=== PATIENT | female | born 1965 | race American Indian/Alaskan Native ===

== ENCOUNTER 2019-04-14 16:26 | Emergency (ER) | payer MEDICARE, MEDICAID ==
[~2019-04-14] VITALS: Ht 157.5 cm; Wt 75.0 kg
[~2019-04-14 16:26] MED LIST: DIAZ-351 PO
[2019-04-14 16:42] VITALS: BP 180/121
--- NOTE | 2019-04-14 16:53 | NUR ---
pt to xray via wheelchair with technical developer
--- NOTE | 2019-04-14 16:59 | NUR ---
pt. back from x-ray.
[2019-04-14] MEDS ORDERED: ketorolac trometh inj. 60 MG/2 ML VIAL IM ONE (17:30)
[2019-04-14] MEDS ORDERED: acetaminophen 325mg tablet PO ONE (17:30)
== END 2019-04-14 17:53 | disposition home or self-care (01) ==
LOC: ER 16:27
DX: S93.492A Sprain of other ligament of left ankle, initial encounter (principal); K21.9 Gastro-esophageal reflux disease without esophagitis; G89.29 Other chronic pain; Z56.0 Unemployment, unspecified; Z98.890 Other specified postprocedural states; Z88.8 Allergy status to other drugs, medicaments and biological substances; X50.1XXA Overexertion from prolonged static or awkward postures, initial encounter; Y93.89 Activity, other specified; Y92.89 Other specified places as the place of occurrence of the external cause; Y99.9 Unspecified external cause status
CPT/HCPCS: 73610; 96372; 99283; J1885